=== PATIENT | male | born 1985 | race Caucasian/White ===

== ENCOUNTER 2023-01-15 19:23 | Emergency (ER) | payer OTHER, SELFPAY ==
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
[2023-01-15 19:27] VITALS: BP 145/75; PULSE 82; RESP 18; TEMP 36.6; O2SAT 96
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
[2023-01-15] MEDS: KETOROLAC 30 MG/ML VIAL (*BKC) IM (20:25)
== END 2023-01-15 20:44 | disposition home or self-care (01) ==
PROVIDERS: Emergency Provider Physician Assistant
DX: S69.91XA Unspecified injury of right wrist, hand and finger(s), initial encounter (principal); W22.09XA Striking against other stationary object, initial encounter
CPT/HCPCS: 73130; 96372; 99283; J1885

== ENCOUNTER 2023-01-25 10:28 | Emergency (ER) | payer OTHER, SELFPAY ==
--- NOTE | ~2023-01-25 | CT_ITS ---
EXAMINATION: CT facial bones wo con DATE: 01/25/2023 11:18 INDICATION: Left orbital pain TECHNIQUE: Computed tomography (CT) of the facial bones and maxillofacial region was performed withou t intravenous contrast. Coronal reconstructions were obtained. The dose-length product was 374.58 mGy -cm. COMPARISON: None. FINDINGS: Left nasal bone fracture with 3 mm medial displacement along a craniocaudally oriented fracture line along the posterior aspect of the left nasal bone. The fracture is mildly comminuted with intervening small fracture fragment angulated between the larger fragments. There is mild asymmetric soft tissue swelling along the left side of the nose No other maxillofacial fractures identified. Specifically t he méndez of the orbits and paranasal sinuses, the nasal septum,, zygomatic arches and mandible are in tact. Temporal mandibular joints are normal alignment. Orbits are normal. Small amount of mucosal thi ckening versus mucus in the dependent posterior inferior right maxillary sinus. IMPRESSION: 1. Mildly comminuted left nasal bone fracture with 3 mm medial displacement. Reviewed, dictated and finalized at location A.
[2023-01-25 10:56] VITALS: BP 142/86; PULSE 85; RESP 16; TEMP 36.5; O2SAT 97
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
[2023-01-25 12:36] VITALS: BP 131/75; PULSE 74; RESP 16; O2SAT 98
== END 2023-01-25 12:38 | disposition home or self-care (01) ==
PROVIDERS: Emergency Provider Physician Assistant
DX: S02.2XXA Fracture of nasal bones, initial encounter for closed fracture (principal); Y04.0XXA Assault by unarmed brawl or fight, initial encounter; Y93.75 Activity, martial arts
CPT/HCPCS: 70486; 99284

== ENCOUNTER 2023-03-11 18:23 | Emergency (ER) | payer OTHER, SELFPAY ==
--- NOTE | ~2023-03-11 | XR_ITS ---
EXAM: XR hand RT min 3V DATE: 03/11/2023 19:07 HISTORY: injury with pain x 2 weeks . COMPARISON: 01/15/2023. FINDINGS: Normal mineralization. No fracture or dislocation. No lytic or blastic lesion. Joint space s are maintained. No erosion or periosteal change. Soft tissues within normal limits. IMPRESSION: No acute osseous finding in the right hand. Reviewed, dictated and finalized at location K.
[2023-03-11 18:25] VITALS: BP 132/71; PULSE 74; RESP 16; TEMP 36.7; O2SAT 98
--- NOTE | 2023-03-11 20:03 | ED.GENADULT ---
HPI - General Adult General Chief complaint: Extremity Injury, Upper Stated complaint: hand injury Time Seen by Provider: 03/11/23 19:29 Source: patient Mode of arrival: ambulatory Limitations: no limitations History of Present Illness HPI narrative: This is a 38-year-old male who presents to the ED with chief complaint of right hand injury that occurred 2 weeks ago. He states he accidentally smashed his hand in a gate at work. Patient reports he has pain in the fourth and fifth knuckles. Denies any numbness or weakness. Denies any further complaint. Related Data Allergies Allergy/AdvReac Type Severity Reaction Status Date / Time No Known Allergies Allergy Verified 03/11/23 18:29 Review of Systems Review of Systems: All systems as dictated in HPI Exam Narrative: GENERAL: Well-appearing, well-nourished, and in no acute distress. HEAD: Normocephalic, atraumatic. EYES: PERRLA and EOMI. ENT: Nares clear, no rhinorrhea or epistaxis. Mucous membranes moist. Oropharynx without tonsillar hypertrophy exudate or other lesions. NECK: Supple. No adenopathy or masses. CHEST: No respiratory distress. Clear to auscultation. No wheezes rales or rhonchi HEART: Regular rate and rhythm. No murmur heard. Normal peripheral pulses. ABDOMEN: Soft, nontender, nondistended, normal active bowel sounds. MSK: Normal range of motion. No edema. SKIN: Warm, dry, no rash. NEURO: Alert and oriented x3. No focal deficits. PSYCH: Normal mood and affect. Course Vital Signs Vital signs: Vital Signs Temperature 98.0 F 03/11/23 18:25 Pulse Rate 74 03/11/23 18:25 Respiratory Rate 16 03/11/23 18:25 Blood Pressure 132/71 03/11/23 18:25 Pulse Oximetry 98 03/11/23 18:25 Oxygen Delivery Room Air 03/11/23 18:25 Temperature 98.0 F 03/11/23 18:25 Pulse Rate 74 03/11/23 18:25 Respiratory Rate 16 03/11/23 18:25 Blood Pressure 132/71 03/11/23 18:25 Pulse Oximetry 98 03/11/23 18:25 Oxygen Delivery Room Air 03/11/23 18:25 Medical Decision Making MDM Narrative Medical decision making narrative: This is a 38-year-old male who presents to the ED with chief complaint of right hand injury that occurred 2 weeks ago. Vitals are normal. Exam is benign. Mild tenderness at the fourth and fifth knuckles. X-rays are negative for any acute findings. I discussed these results with the patient and that he needs to take Tylenol and ibuprofen as needed for pain and swelling. Pt will be discharged in stable condition. Return precautions given and supportive measures discussed. Pt is understanding and agreeable with plan for discharge and follow-up with PCP. Vital Signs Vital Signs: Vital Signs Temperature 98.0 F 03/11/23 18:25 Pulse Rate 74 03/11/23 18:25 Respiratory Rate 16 03/11/23 18:25 Blood Pressure 132/71 03/11/23 18:25 Pulse Oximetry 98 03/11/23 18:25 Oxygen Delivery Room Air 03/11/23 18:25 Temperature 98.0 F 03/11/23 18:25 Pulse Rate 74 03/11/23 18:25 Respiratory Rate 16 03/11/23 18:25 Blood Pressure 132/71 03/11/23 18:25 Pulse Oximetry 98 03/11/23 18:25 Oxygen Delivery Room Air 03/11/23 18:25 Discharge Plan Discharge Clinical Impression: Injury of hand, right Patient Disposition: Home, Self-Care Condition: Stable Instructions: Antibiotic Form Additional Instructions: Your x-rays and exam are negative for fracture today. Please take ibuprofen as needed for pain and swelling. Follow-up/Referrals: PHYSICIAN,PROFESSOR OF MUSICOLOGY [Primary Care Provider] - Time of Disposition: 20:04
== END 2023-03-11 20:15 | disposition home or self-care (01) ==
PROVIDERS: Emergency Provider Physician Assistant
DX: S69.91XA Unspecified injury of right wrist, hand and finger(s), initial encounter (principal); W23.0XXA Caught, crushed, jammed, or pinched between moving objects, initial encounter
CPT/HCPCS: 73130; 99283

== ENCOUNTER 2023-05-03 09:33 | Emergency (ER) | payer OTHER, SELFPAY ==
[2023-05-03 09:47] VITALS: BP 135/83; PULSE 66; RESP 16; TEMP 36.8; O2SAT 100
--- NOTE | 2023-05-03 09:52 | ED.GENADULT ---
HPI - General Adult General Chief complaint: Upper Respiratory Infection Stated complaint: headache,girlfriend tested positive for COVID Time Seen by Provider: 05/03/23 09:52 Source: patient, RN notes reviewed and old records reviewed Mode of arrival: ambulatory Limitations: no limitations History of Present Illness HPI narrative: 38-year-old male presents to the [facility] concern for COVID. States his girlfriend tested positive 2 days ago. States he developed a headache yesterday and was having night sweats last night. Has not taken anything for his symptoms Treatments prior to arrival: none Related Data Home Medications Medication Instructions Recorded Confirmed No Home Medications 05/03/23 05/03/23 Allergies Allergy/AdvReac Type Severity Reaction Status Date / Time No Known Allergies Allergy Verified 03/11/23 18:29 Review of Systems Review of Systems: All systems reviewed & are unremarkable except as noted in HPI and below Constitutional: Constitutional: Reports as per HPI, Reports headache(s) and Reports night sweats Eyes: Eyes: Reports no additional eye complaints ENT: Reports system reviewed and no additional complaints, except as documented Cardiovascular: Cardiovascular: Reports no additional cardiovascular complaints, Denies chest pain and Denies dyspnea Respiratory: Respiratory: Reports no additional respiratory complaints, Denies chest congestion, Denies cough and Denies dyspnea Gastrointestinal: Gastrointestinal: Reports no additional gastrointestinal complaints, Denies abdominal pain, Denies nausea and Denies vomiting Musculoskeletal: Musculoskeletal: Reports no additional musculoskeletal complaints Integumentary/Breasts: Skin/Breast: Reports system reviewed and no additional complaints, except as docu Neurologic: Reports system reviewed and no additional complaints, except as documented Psychiatric: Psychiatric: Reports no additional psychiatric complaints Allergic/Immunologic: Allergic/Immunologic: Reports no additional allergic/immunologic complaints PMFSH Past Medical History Medical History (Updated 05/03/23 @ 17:03 by Jamila Darden APRN) Patient denies medical problems Surgical History Surgical History (Updated 05/03/23 @ 17:02 by Jamila Darden APRN) No pertinent past surgical history Social History Social History (Updated 05/03/23 @ 17:02 by Jamila Darden APRN) Gender identity (if verbalized by the patient): Male Comments At the time of my signature, I reviewed and agree with the nursing past medical, surgical, social, and family history. There is no relevant family history pertinent to the patient complaint. Exam Const: General: cooperative, healthy appearing, comfortable, no acute distress, well developed, alert and well nourished Nutritional Appearance: well nourished Orientation/consciousness: patient oriented x3 Limitations: no limitations HENMT: Head: normal to inspection Ears: hearing grossly normal bilaterally, external ears normal, TM's normal bilaterally and EAC's normal Face/Nose/Sinus: Normal external nose present, Normal nares present, Normal nasal mucous membranes and turbinates present, normal facial exam and face symmetric Face and sinus: normal facial exam and face symmetric Mouth: Yes Normal oral and palatal mucosa present, Yes lip normal and Yes moist mucous membranes Throat: posterior oropharynx normal, tonsils normal and uvula midline Eyes: General: appearance normal, both eyes and all related structures Alignment and Position: alignment normal Periorbital: periorbital findings normal Pupils: Equal, round and reactive pupils present EOM: EOMs intact bilaterally Neck: Neck: normal visual inspection, full ROM, no lymphadenopathy and no meningeal signs Chest: Chest palpation & inspection: normal inspection of the chest Resp: Effort & Inspection: normal respiratory effort and able to speak in complete sentences Auscultation: clear to
== END 2023-05-03 10:07 | disposition home or self-care (01) ==
PROVIDERS: Emergency Provider Nurse Practitioner
DX: R51.9 Headache, unspecified (principal); Z20.822 Contact with and (suspected) exposure to COVID-19
CPT/HCPCS: 87426; 99213; C9803; G0463

== ENCOUNTER 2023-05-04 08:01 | Emergency (ER) | payer OTHER, SELFPAY ==
--- NOTE | 2023-05-04 08:10 | ED.URI ---
HPI - URI/Sore Throat General Chief Complaint: Upper Respiratory Infection Stated Complaint: f/u COVID test Time Seen by Provider: 05/04/23 08:44 Source: patient and RN notes reviewed Mode of arrival: ambulatory Limitations: no limitations History of Present Illness HPI Narrative: 38-year-old male presents with concern for COVID test. He reports his girlfriend has COVID, he was seen yesterday for a headache and had a negative COVID test. He was told he should test again in 24 hours. His boss insisted that he get a COVID test at a medical facility. He denies any current symptoms. MD elicited complaint: other (COVID exposure) Related Data Home Medications Medication Instructions Recorded Confirmed No Home Medications 05/03/23 05/04/23 Allergies Allergy/AdvReac Type Severity Reaction Status Date / Time No Known Allergies Allergy Verified 05/04/23 08:19 Review of Systems Review of Systems: CONSTITUTIONAL: Denies malaise, chills, sweats, or fever. EYES: Denies visual changes, redness, or discharge. ENT: Denies rhinorrhea, congestion, sinus pain, otalgia and sore throat. CARDIOVASCULAR: Denies chest pain, palpitations, or edema. RESPIRATORY: Denies cough. Denies dyspnea. GASTROINTESTINAL: Denies abdominal pain, nausea, vomiting, diarrhea SKIN: Denies rash or itching. MUSCULOSKELETAL: Denies myalgia. NEUROLOGIC: Denies headache. All systems reviewed & are unremarkable except as noted in HPI and below PMFSH Past Medical History Medical History (Updated 05/04/23 @ 08:51 by Jamila Jules NP) Patient denies medical problems Surgical History Surgical History (Updated 05/03/23 @ 17:02 by Jamila Darden APRN) No pertinent past surgical history Social History Social History (Updated 05/03/23 @ 17:02 by Jamila Darden APRN) Gender identity (if verbalized by the patient): Male Comments At time of signature, agree with nursing past medical, surgical, social and family history. There is no relevant family history pertinent to the presenting complaint Exam Narrative: GENERAL: Well-appearing, well-nourished, and in no acute distress. HEAD: Normocephalic EYES: PERRLA, conjunctivae clear ENT: Nares clear Mucous membranes moist. TM pearly long with sharp light reflex bilaterally; no tragal tenderness. Oropharynx not erythematous without lesions. Tonsils not enlarged and without exudate, no drooling, no hoarseness, no trismus, uvula midline. NECK: Supple. No lymphadenopathy CHEST: Clear to auscultation, breath sounds equal. No wheezing, rhonchi, rales, or stridor. No respiratory distress, speaks in full sentences. HEART: Regular rate and rhythm. No murmur heard. SKIN: Warm, dry, no rash. NEURO: Alert and oriented x3. PSYCH: Normal mood and affect Course Course Emergency Course: Patient is aware of diagnosis, understands and agrees to treatment plan. Anticipatory guidance given. Patient agrees to follow-up as directed and is aware of reasons to seek care at the emergency department. Portions of this record may have been created with voice recognition software Level of Care: Express Care Visit Vital Signs Vital signs: Reviewed. MDM - URI/Sore Throat MDM Narrative Medical decision making narrative: Differential diagnosis considered: [place] virus, strep pharyngitis, allergic rhinitis, upper respiratory tract infection, sinusitis, rhinosinusitis, nasopharyngitis. viral pharyngitis, otitis media, otitis externa, pneumonia, bronchitis, viral cough syndrome, viral syndrome, and influenza. Exam findings show no acute concerns or changes; patient is non-toxic appearing and is in no distress. Patient is appropriate for outpatient treatment and follow-up. Lab Data Attestation: I reviewed the patient's lab results. Critical Care Time Critical Care Time Critical Care Time: No Discharge Plan Discharge Clinical Impression: Encounter for screening for COVID-19 Patient Disposition: Home, Self-C
[2023-05-04 08:14] VITALS: BP 117/67; PULSE 71; RESP 16; TEMP 36.2; O2SAT 99
== END 2023-05-04 08:55 | disposition home or self-care (01) ==
PROVIDERS: Emergency Provider Nurse Practitioner
DX: Z20.822 Contact with and (suspected) exposure to COVID-19 (principal)
CPT/HCPCS: 87426; 99213; C9803; G0463